=== PATIENT | male | born 1975 | race American Indian/Alaskan Native ===

== ENCOUNTER 2016-10-13 12:15 | Emergency (ER) | payer SELFPAY ==
[~2016-10-13 12:15] MED LIST: PEPCID IV ONE
[2016-10-13] MEDS ORDERED: PEPCID IV ONE (12:26)
[2016-10-13 13:12] VITALS: BP 128/87
--- NOTE | 2016-10-13 14:15 | Emergency Department Report ---
ED General Adult HPI - General Chief complaint: Allergic Reaction Stated complaint: ALLERGIC REACTION Time Seen by Provider: 10/13/16 12:39 Source: patient, EMS Mode of arrival: Stretcher Limitations: No Limitations - History of Present Illness Initial comments: Patient states he was mowing the lawn when he got stung several times in the ankle and the arm by yellow jackets. He developed itching and swelling. He denies any previous allergic reaction. States he had some difficulty in breathing initially when the paramedics arrived. He was given Benadryl and Solu -Medrol. At the time of his arrival, he stated his difficulty in breathing had resolved. He denied any swelling in his oropharynx. In addition on arrival he was given Pepcid IV. -: Sudden Severity scale (0 -10): 0 Consistency: constant Improves with: none Worsens with: none Associated Symptoms: denies other symptoms - Related Data Home Medications Medication Instructions Recorded Confirmed Last Taken Multivitamin Tab [Multiple Vitamin 1 each PO QDAY 10/13/16 10/13/16 10/13/16 TAB (Theragran)] Allergies Allergy/AdvReac Type Severity Reaction Status Date / Time wool Allergy Itching Uncoded 10/13/16 12:27 ED Review of Systems ROS: Stated complaint: ALLERGIC REACTION Other details as noted in HPI Constitutional: denies: chills, fever Eyes: denies: eye pain, eye discharge, vision change ENT: denies: ear pain, throat pain Respiratory: shortness of breath. denies: cough, wheezing Cardiovascular: denies: chest pain, palpitations Endocrine: no symptoms reported Gastrointestinal: denies: abdominal pain, nausea, diarrhea Genitourinary: denies: urgency, dysuria Musculoskeletal: denies: back pain, joint swelling, arthralgia Skin: denies: rash, lesions Neurological: denies: headache, weakness, paresthesias Psychiatric: denies: anxiety, depression Hematological/Lymphatic: denies: easy bleeding, easy bruising ED Past Medical Hx - Past Medical History Previous Medical History?: Yes Hx Hypertension: Yes (noncompliant) - Surgical History Past Surgical History?: No - Social History Smoking Status: Current Every Day Smoker Substance Use Type: Alcohol - Medications Home Medications: Home Medications Medication Instructions Recorded Confirmed Last Taken Type Multivitamin Tab [Multiple Vitamin 1 each PO QDAY 10/13/16 10/13/16 10/13/16 History TAB (Theragran)] ED Physical Exam - General Limitations: No Limitations General appearance: alert, in no apparent distress - Head Head exam: Present: atraumatic, normocephalic - Eye Eye exam: Present: normal appearance. Absent: scleral icterus - ENT ENT exam: Present: normal exam, normal orophraynx, mucous membranes moist, other (mild lip edema) - Neck Neck exam: Present: normal inspection. Absent: tenderness, meningismus - Respiratory Respiratory exam: Present: normal lung sounds bilaterally. Absent: respiratory distress - Cardiovascular Cardiovascular Exam: Present: regular rate, normal rhythm. Absent: systolic murmur, diastolic murmur, rubs, gallop - GI/Abdominal GI/Abdominal exam: Present: soft, normal bowel sounds. Absent: distended, tenderness, guarding, rebound, rigid - Rectal Rectal exam: Present: deferred - Extremities Exam Extremities exam: Present: normal inspection - Back Exam Back exam: Present: normal inspection - Neurological Exam Neurological exam: Present: alert, oriented X3, CN II-XII intact. Absent: motor sensory deficit - Psychiatric Psychiatric exam: Present: normal affect, normal mood - Skin Skin exam: Present: warm, dry, intact, normal color. Absent: rash ED Course Vital Signs 10/13/16 10/13/16 10/13/16 12:15 12:30 12:45 Temperature 98.4 F Pulse Rate 91 H Respiratory 16 Rate Blood Pressure 139/82 137/87 128/87 Blood Pressure 132/82 [Right] O2 Sat by Pulse 98 98 100 Oximetry 10/13/16 13:13 Temperature Pulse Rate Respiratory 16 Rate Blood Pressure Blood Pressure [Right] O2 Sat by Pulse 100 Oximetry - Reevaluation(s) Reevaluation #1: On reexamination the patient's symptoms had resolved. His lip swelling had improved. 10/13/16 14:17 Reevaluation #2: Note patient eloped without written discharge instructions but received verbal. 10/13/16 14:19 Critical care attestation.: If time is entered above; I have spent that time in minutes in the direct care of this critically ill patient, excluding procedure time. ED Disposition Clinical Impression: Systemic reaction to hymenoptera Qualifiers: Encounter type: initial encounter Injury intent: accidental or unintentional Qualified Code(s): T63.441A - Toxic effect of venom of bees, accidental ( unintentional), initial encounter Disposition: DC-01 TO HOME OR SELFCARE Is pt being admited?: No Does the pt Need Aspirin: No Condition: Stable Instructions: Insect Bite or Sting (ED), Urticaria (ED) Additional Instructions: Continue Benadryl and Pepcid [id number]. Return any acute change or problem. Referrals: PRIMARY CARE, [Primary Care Provider] - 2-3 Days Time of Disposition: 14:20
== END 2016-10-13 14:26 | disposition home or self-care (01) ==
LOC: ED 12:15
DX: T63.441A Toxic effect of venom of bees, accidental (unintentional), initial encounter (principal); Y92.89 Other specified places as the place of occurrence of the external cause; I10 Essential (primary) hypertension; F17.200 Nicotine dependence, unspecified, uncomplicated; Z91.048 Other nonmedicinal substance allergy status; Z91.030 Bee allergy status
CPT/HCPCS: 96374

== ENCOUNTER 2016-10-15 19:21 | Inpatient (IN) | payer OTHER ==
[2016-10-15] MEDS ORDERED: NACL 0.9% 1000 ML 1,000 ML ONE (19:25)
[2016-10-15] MEDS ORDERED: PEPCID IV ONE ×2 (19:25→20:54)
[2016-10-15] MEDS ORDERED: ADRENALIN ONE (19:25)
[2016-10-15] MEDS ORDERED: AMIDATE IV ONE ×2 (19:38→23:00)
[2016-10-15] MEDS ORDERED: QUELICIN IV ONE (19:38)
[2016-10-15] MEDS ORDERED: ATROVENT IH ONE (19:41)
[2016-10-15] MEDS ORDERED: PROVENTIL IH ONE (19:41)
[2016-10-15] MEDS ORDERED: SUBLIMAZE ONE ×3 (19:42→20:25)
[2016-10-15] MEDS: fentaNYL DRIP Premix 2,000 MCG/100 ML BAG IV SCH (19:43)
[2016-10-15] MEDS ORDERED: DIPRIVAN 10 MG/ML 1,000 MG/100 ML BOTTLE IV ONE (19:48)
[2016-10-15] MEDS ORDERED: DIPRIVAN 10 MG/ML IV ONE (19:50)
--- NOTE | 2016-10-15 19:57 | Emergency Department Report ---
ED Allergic Reaction HPI - General Stated complaint: ALLERGIC REACTION/BEE STINGS Time Seen by Provider: 10/15/16 19:34 Source: EMS Limitations: Altered Mental Status - History of Present Illness Initial Comments: Patient by EMS in a anaphylactic shock. EMS stated that patient has a had a bee sting two days ago and he got stung again today. patient is unresponsive upon arrivals and has significantly diminished air movement. Patient immediately intubated by me and received epinephrine,solumedrol,pepcid and albuterol. MD Complaint: allergic reaction, hives, facial swelling -: Sudden Exposure: insect bite Symptoms: facial swelling, lip swelling, difficulty breathing Severity: severe Treatment Prior to Arrival: benadryl, epinephrine, oxygen, steroids Previous Allergy History: anaphylaxis - Related Data Home Medications Medication Instructions Recorded Confirmed Last Taken Multivitamin Tab [Multiple Vitamin 1 each PO QDAY 10/13/16 10/13/16 10/13/16 TAB (Theragran)] Allergies Allergy/AdvReac Type Severity Reaction Status Date / Time wool Allergy Itching Uncoded 10/13/16 12:27 ED Review of Systems ROS: Stated complaint: ALLERGIC REACTION/BEE STINGS Other details as noted in HPI Comment: Unobtainable due to pts medical conditions ED Past Medical Hx - Past Medical History Hx Hypertension: Yes (noncompliant) Additional medical history: anaphylactic shock to bee sting - Social History Smoking Status: Current Every Day Smoker Substance Use Type: Alcohol - Medications Home Medications: Home Medications Medication Instructions Recorded Confirmed Last Taken Type Multivitamin Tab [Multiple Vitamin 1 each PO QDAY 10/13/16 10/13/16 10/13/16 History TAB (Theragran)] ED Physical Exam - General Limitations: Altered Mental Status General appearance: appears intoxicated, obtunded, in distress - Head Head exam: Present: atraumatic, normocephalic - Eye Eye exam: Present: periorbital swelling - Expanded ENT Exam Expanded Mouth exam: Present: other (swollen tongue) Throat exam: Positive: normal inspection - Neck Neck exam: Present: normal inspection - Respiratory Respiratory exam: Present: respiratory distress (air movement is significantly diminished on both sides), accessory muscle use. Absent: wheezes, rhonchi, stridor - Cardiovascular Cardiovascular Exam: Present: tachycardia - GI/Abdominal GI/Abdominal exam: Present: soft. Absent: distended - Expanded Neurological Exam Expanded Best Eye Response (Convoy): (2) open to pain Best Motor Response (Convoy): (4) withdraws to pain Best Verbal Response (Convoy): (2) incomprehsible sounds Convoy Total: 8 - Skin Skin exam: Present: warm ED Course Vital Signs 10/15/16 10/15/16 10/15/16 19:15 19:20 19:30 Pulse Rate 113 H 149 H 148 H Pulse Rate [ Bilateral Throughout] Respiratory 23 19 25 H Rate Respiratory Rate [Bilateral Throughout] Blood Pressure 162/118 162/118 162/118 O2 Sat by Pulse 98 99 99 Oximetry 10/15/16 10/15/16 10/15/16 19:40 19:50 20:01 Pulse Rate 123 H 137 H 97 H Pulse Rate [ Bilateral Throughout] Respiratory 14 19 21 Rate Respiratory Rate [Bilateral Throughout] Blood Pressure 130/104 133/94 97/45 O2 Sat by Pulse 97 99 98 Oximetry 10/15/16 10/15/16 10/15/16 20:06 20:11 20:21 Pulse Rate 96 H 123 H 134 H Pulse Rate [ Bilateral Throughout] Respiratory 21 24 Rate Respiratory Rate [Bilateral Throughout] Blood Pressure 97/45 97/45 149/93 O2 Sat by Pulse 98 100 100 Oximetry 10/15/16 10/15/16 10/15/16 20:31 20:41 20:51 Pulse Rate 129 H 99 H 95 H Pulse Rate [ Bilateral Throughout] Respiratory 12 18 18 Rate Respiratory Rate [Bilateral Throughout] Blood Pressure 149/93 127/74 127/74 O2 Sat by Pulse 100 97 97 Oximetry 10/15/16 10/15/16 10/15/16 20:55 21:01 21:21 Pulse Rate 91 H Pulse Rate [ 88 Bilateral Throughout] Respiratory 17 19 Rate Respiratory 20 Rate [Bilateral Throughout] Blood Pressure 127/74 O2 Sat by Pulse 98 Oximetry 10/15/16 21:30 Pulse Rate 85 Pulse Rate [ Bilateral Throughout] Respiratory Rate Respiratory Rate [Bilateral Throughout] Blood Pressure O2 Sat by Pulse Oximetry - Reevaluation(s) Reevaluation #1: 10/15/16 21:32 Patient will be admitted to the ICU discussed patient with Dr. Devi Milton - Intubation Time Out Performed: Yes Sedative: Etomidate Paralytic: Succinylcholine Mg Given: 100 Laryngoscope: Benito Size: 4 ET Tube Size: 7.5 Tube Secured Location: lips Tube Placement Confirmation: visualized tube passing t, equal breath sounds bilat, no breath sounds over epi, confirmation by capnometr Patient Tolerated Procedure: well, no complications Intubation Complications: none ED Medical Decision Making - Lab Data Result diagrams: 10/15/16 21:06 Critical Care Time: Yes (intubated in the ER) Critical care time in (mins) excluding proc time.: 60 Critical care attestation.: If time is entered above; I have spent that time in minutes in the direct care of this critically ill patient, excluding procedure time. ED Disposition Clinical Impression: Acute respiratory failure, Anaphylactic reaction Disposition: DC OP ADMIT IP TO THIS HOSP Is pt being admited?: Yes Does the pt Need Aspirin: No Condition: Critical Referrals: PRIMARY CARE, [Primary Care Provider] - 3-5 Days
[2016-10-15 20:12] LABS: Urine Drugs of Abuse Note Disclamer
[2016-10-15] MEDS ORDERED: NACL 0.9% 1000 ML 1,000 ML IV ONE (20:22)
--- NOTE | 2016-10-15 20:22 | Admit Criteria Form ---
Admission Criteria Documentation: RESPIRATORY FAILURE GRG Clinical Indications for Admission to Inpatient Care (Place 'X' for any and all applicable criteria): Hospital admission is needed for appropriate care of the patient because of acute respiratory failure or insufficiency as indicated by ANY ONE of the following(1)(2)(3)(4)(5)(6)(7)(8): [ X]I. Mechanical ventilation needed (acute invasive or noninvasive) [ ]II. Severe ventilation deficit as indicated by ANY ONE of the following (9) [ ]a) Respiratory acidosis (pH less than 7.32 and partial pressure of carbon dioxide greater than 40 mm Hg (5.3 kPa)) [ ]b) Partial pressure of carbon dioxide greater than 44 mm Hg (5.9 kPa ) (new) [ ]c) Airflow measurements less than 25% of predicted (eg, peak expiratory flow rate less than 100 L/minute) [ ]d) Forced vital capacity less than 15 mL/kg of ideal body weight, or 50% decrease in vital capacity from baseline [ ]III. Noncardiac pulmonary edema not resolving with rapid emergency treatment (8) [ ]IV. Severe respiratory distress as indicated by ANY ONE of the following: [ ]a) Severe tachypnea (respiratory rate greater than 30, greater than 45 for 6-month-old, greater than 60 for ) [ ]b) Severe hypoxemia (partial pressure of oxygen less than 50 mm Hg ( 6.7 kPa) on greater than 50% oxygen or partial pressure of oxygen to FIO2 ratio less than 200) [ ]c) Mental status deterioration from respiratory disease [ ]V. Airway obstruction or inadequate protection [A](10)(11) The original [employer] content created by [employer] has been revised. The portions of the content which have been revised are identified through the use of italic text or in bold, and [employer] has neither reviewed nor approved the modified material. All other unmodified content is copyright [employer]. Please see references footnoted in the original [employer] edition 2016 Admission Criteria Met: Yes
[2016-10-15 20:24] LABS: Bilirubin,Urine NEG (Negative); Blood,Urine SM (Negative); Ketones,Urine NEG (Negative); Leukocyte Esterase,Urine NEG (Negative); Nitrite,Urine NEG (Negative); Urobilinogen,Urine < 2.0 mg/dL (<2.0); WBC,Urine < 1.0 /HPF (0.0-6.0)
[2016-10-15] MEDS ORDERED: VERSED IV ONE (20:41)
[2016-10-15] MEDS ORDERED: SUBLIMAZE IV ONE ×3 (20:49→20:54)
[2016-10-15] MEDS ORDERED: VERSED IV NR ×2 (21:00)
[2016-10-15 21:20] LABS: Basophils % (Auto) 0.3 % (0.0-1.8); Eosinophils % (Auto) 0.4 % (0.0-4.3); Hematocrit 37.4 % (35.5-45.6); Hemoglobin 12.6 gm/dl (11.8-15.2); Mean Corpuscular HGB Conc 34 % (32-34); Mean Corpuscular Hemoglobin 32 pg (28-32); Mean Corpuscular Volume 96 fl (84-94); Platelet Count 124 K/mm3 (140-440); Red Cell Distribution Width 14.9 % (13.2-15.2); White Blood Count 5.8 K/mm3 (4.5-11.0)
[2016-10-15 21:36] LABS: INR 1.03 (0.87-1.13)
[2016-10-15 21:37] LABS: Partial Thromboplastin Time 28.1 Sec. (24.2-36.6)
[2016-10-15 21:42] LABS: Alanine Aminotransferase 39 units/L (7-56); Albumin 4.1 g/dL (3.9-5); Albumin/Globulin Ratio 1.3 %; Alkaline Phosphatase 54 units/L (35-129); Anion Gap 26 mmol/L; BUN/Creatinine Ratio 8.57; Blood Urea Nitrogen 6 mg/dL (9-20); Calcium 8.6 mg/dL (8.4-10.2); Carbon Dioxide 18 mmol/L (22-30); Creatine Kinase 311 units/L (55-170); Glucose 91 mg/dL (75-100); Potassium 3.5 mmol/L (3.6-5.0); Sodium 135 mmol/L (137-145); Total Protein 7.2 g/dL (6.3-8.2)
[2016-10-15] MEDS ORDERED: TYLENOL PO PRN (21:50)
[2016-10-15] MEDS ORDERED: ATIVAN IV PRN (21:50)
[2016-10-15] MEDS ORDERED: PROVENTIL IH PRN (21:50)
[2016-10-15] MEDS ORDERED: TYLENOL PR PRN (21:50)
[2016-10-15] MEDS ORDERED: ZOFRAN IV PRN (21:50)
[2016-10-15] MEDS ORDERED: PEPCID PO SCH (22:00)
--- NOTE | 2016-10-15 22:00 | History and Physical Report ---
<ALIVIA MILLER - Last Filed: 10/15/16 22:38> Medications and Allergies Allergies Allergy/AdvReac Type Severity Reaction Status Date / Time wool Allergy Itching Uncoded 10/13/16 12:27 Home Medications Medication Instructions Recorded Confirmed Last Taken Type Multivitamin Tab [Multiple Vitamin 1 each PO QDAY 10/13/16 10/13/16 10/13/16 History TAB (Theragran)] Active Meds: Active Medications Acetaminophen (Tylenol) 650 mg PO Q4H PRN PRN Reason: Pain MILD(1-3)/Fever >100.5/ROUSE Acetaminophen (Tylenol) 650 mg RI Q4H PRN PRN Reason: Pain MILD(1-3)/Fever >100.5/ROUSE Albuterol (Proventil) 2.5 mg IH Q3HRT PRN PRN Reason: Shortness Of Breath Diphenhydramine HCl (Benadryl) 25 mg IV Q6H KATE Famotidine (Pepcid) 10 mg PO BID KATE Fentanyl Citrate (Fentanyl Drip Premix) 2,000 mcg in 100 mls @ 4.5 mls/hr IV TITR KATE; 1 MCG/KG/HR PRN Reason: Protocol Last Admin: 10/15/16 19:43 Dose: 1 mcg/kg/hr, 4.5 mls/hr Sodium Chloride (Nacl 0.9% 1000 Ml) 1,000 mls @ 150 mls/hr IV DIRECT KATE Potassium Chloride (Kcl 10meq/100ml) 10 meq in 100 mls @ 100 mls/hr IV Q1H KATE Stop: 10/16/16 00:59 Lorazepam (Ativan) 2 mg IV Q1H PRN PRN Reason: CIWA-Ar 8-15 Lorazepam (Ativan) 4 mg IV Q1H PRN PRN Reason: CIWA-Ar 16-25 Methylprednisolone Sodium Succinate (Solu-Medrol) 125 mg IV Q6H KATE Ondansetron HCl (Zofran) 4 mg IV Q8H PRN PRN Reason: N/V unrelieved by Reglan Exam - Constitutional Vitals: Temp Pulse Resp BP Pulse Ox 85 19 127/74 98 10/15/16 21:30 10/15/16 21:21 10/15/16 21:01 10/15/16 21:01 Results - Labs CBC & Chem 7: 10/15/16 21:06 10/15/16 21:06 Labs: Abnormal lab results 10/15/16 10/15/16 10/15/16 Range/Units 21:06 21:06 21:53 MCV 96 H (84-94) fl Plt Count 124 L (140-440) K/mm3 Lymph % (Auto) 7.4 L (13.4-35.0) % Lymph # 0.4 L (1.2-5.4) K/mm3 Seg Neutrophils % 89.9 H (40.0-70.0) % POC ABG pH 7.313 L (7.35-7.45) POC ABG pO2 209 H (80-105) Sodium 135 L (137-145) mmol/L Potassium 3.5 L (3.6-5.0) mmol/L Chloride 95.0 L (98-107) mmol/L Carbon Dioxide 18 L (22-30) mmol/L BUN 6 L (9-20) mg/dL Creatinine 0.7 L (0.8-1.5) mg/dL AST 69 H (5-40) units/L Total Creatine Kinase 311 H (55-170) units/L <MARU ANDERSON - Last Filed: 10/16/16 06:22> History of Present Illness Date of examination: 10/15/16 History of present illness: History per girlfriend. 40-year-old man with no medical history was brought to the emergency room by EMS. The patient was stung by a bee, developed respiratory distress and was intubated in the emergency room. He was seen here 2 days ago, he complaining of being stung by yellow jackets and was given Solu- Medrol, Benadryl and Pepcid. The patient was instructed to continue Benadryl and Pepcid, unclear if he continued his medication upon discharge. Review of system is unobtainable Past medical history: None Past surgical history: Unknown Social history: Smokes half a pack cigarettes a day, drinks a lot, and toxicology positive for marijuana and cocaine Family history: Hypertension Medications and Allergies Active Meds: Active Medications Fentanyl Citrate (Fentanyl Drip Premix) 2,000 mcg in 100 mls @ 4.5 mls/hr IV TITR KATE; 1 MCG/KG/HR PRN Reason: Protocol Last Admin: 10/15/16 19:43 Dose: 1 mcg/kg/hr, 4.5 mls/hr Exam - Physical Exam Narrative exam: Gen. appearance: Patient lying in bed, no apparent distress, intubated HEENT: Normocephalic, atraumatic, pupils equally round and reactive to light, unable to do extraocular movement, and no sclericterus,. No JVD or thyromegaly or nodule,neck supple, no carotid bruit ,mucous membranes moist, ET tube in Place, unable to examine oral cavity Heart: S1, S2, regular rate and rhythm Lungs: Clear to auscultation bilaterally, breathing comfortable Abdomen: Positive bowel sounds, soft, nondistended, no organomegaly Extremity: No edema, cyanosis, clubbing Skin: No rash, nodules, warm, dry Neuro: Sedated - Constitutional Vitals: Temp Pulse Resp BP Pulse Ox 85 19 127/74 98 10/15/16 21:30 10/15/16 21:21 10/15/16 21:01 10/15/16 21:01 Results - Labs CBC & Chem 7: 10/16/16 04:28 10/16/16 04:28 Labs: Abnormal lab results 10/15/16 10/15/16 Range/Units 21:06 21:06 MCV 96 H (84-94) fl Plt Count 124 L (140-440) K/mm3 Lymph % (Auto) 7.4 L (13.4-35.0) % Lymph # 0.4 L (1.2-5.4) K/mm3 Seg Neutrophils % 89.9 H (40.0-70.0) % Sodium 135 L (137-145) mmol/L Potassium 3.5 L (3.6-5.0) mmol/L Chloride 95.0 L (98-107) mmol/L Carbon Dioxide 18 L (22-30) mmol/L BUN 6 L (9-20) mg/dL Creatinine 0.7 L (0.8-1.5) mg/dL AST 69 H (5-40) units/L Total Creatine Kinase 311 H (55-170) units/L - Imaging and Cardiology EKG: image reviewed Chest x-ray: image reviewed CT Scan - head: pending Assessment and Plan Assessment Acute respiratory failure Anaphylactic reaction to bee sting Thrombocytopenia Hypokalemia Substance abuse Plan Admit to medicine Continue sedation with fentanyl and propofol Start IV Solu-Medrol high-dose, Pepcid and Benadryl Start CIWA protocol with IV Ativan Replete potassium, consult critical care DVT prophylaxis with SCD
[2016-10-15 22:01] LABS: ISTAT Base Excess -5; ISTAT HCO3 21.3; ISTAT PCO2 41.9 (35-45); ISTAT PH 7.313 (7.35-7.45); ISTAT PO2 209 (80-105); ISTAT SO2 100; ISTAT TCO2 23
--- NOTE | 2016-10-15 22:52 | Cat Scan Report ---
FINAL REPORT PROCEDURE: CT HEAD/BRAIN WO CON TECHNIQUE: Computerized tomography of the head was performed without contrast material. HISTORY: AMS COMPARISON: No prior studies are available for comparison. FINDINGS: Skull and scalp: Normal. Paranasal sinuses: Mild opacification of the ethmoid sinuses. Ventricles and subarachnoid spaces: Normal. Cerebrum: No evidence of hemorrhage, acute infarction or mass . Cerebellum and brainstem: No evidence of hemorrhage, acute infarction or mass. Vasculature: Normal. Comments: None. IMPRESSION: There is no evidence of an acute intracranial process.
[2016-10-15] MEDS ORDERED: QUELICIN ONE (23:00)
[2016-10-15] MEDS ORDERED: ZEMURON IV ONE (23:00)
[2016-10-16] MEDS: BENADRYL IV SCH ×5 (00:31→22:26)
[2016-10-16] MEDS ORDERED: DIPRIVAN 10 MG/ML IV ONE (00:32)
[2016-10-16] MEDS ORDERED: DIPRIVAN 10 MG/ML 1,000 MG/100 ML BOTTLE IV ONE (00:44)
[2016-10-16] MEDS: DIPRIVAN 10 MG/ML 1,000 MG/100 ML BOTTLE IV SCH ×5 (00:57→20:22)
[2016-10-16] MEDS: KCL 10MEQ/100ML 10 MEQ/100 ML BAG IV SCH ×2 (00:59→02:53)
[2016-10-16] MEDS: NACL 0.9% 1000 ML 1,000 ML IV SCH ×4 (00:59→20:24)
[2016-10-16] MEDS: fentaNYL DRIP Premix 2,000 MCG/100 ML BAG IV SCH ×3 (01:24→22:32)
[2016-10-16] MEDS: ATIVAN IV PRN ×3 (02:54→10:46)
[2016-10-16 04:18] LABS: ISTAT Base Excess -3; ISTAT PCO2 46.6 (35-45); ISTAT PH 7.301 (7.35-7.45); ISTAT PO2 142 (80-105); ISTAT SO2 99; ISTAT TCO2 24
[2016-10-16 04:57] LABS: Hematocrit 38.6 % (35.5-45.6); Mean Corpuscular HGB Conc 34 % (32-34); Mean Corpuscular Hemoglobin 32 pg (28-32); Mean Corpuscular Volume 96 fl (84-94); Platelet Count 130 K/mm3 (140-440); Red Blood Count 4.03 M/mm3 (3.65-5.03); White Blood Count 4.1 K/mm3 (4.5-11.0)
[2016-10-16 05:28] LABS: Anion Gap 22 mmol/L; Blood Urea Nitrogen 5 mg/dL (9-20); Calcium 8.3 mg/dL (8.4-10.2); Carbon Dioxide 20 mmol/L (22-30); Chloride 99.9 mmol/L (98-107); Glucose 111 mg/dL (75-100); Potassium 4.6 mmol/L (3.6-5.0); Sodium 137 mmol/L (137-145)
[2016-10-16 05:49] LABS: Basophils % (Manual) 0 % (0.0-1.8); Blastocytes % (Manual) 0 %; Eosinophils % (Manual) 0 % (0.0-4.3); Total Cells Counted Percent 0
[2016-10-16 05:50] LABS: Diff Status Complete; Platelet Estimate Appears Decreased; Target Cells Rare
--- NOTE | 2016-10-16 08:16 | XRay Report ---
AP CHEST :10/15/16 19:21:00 CLINICAL: Fever, cough and HIV. COMPARISON:11/14/11 FINDINGS: An endotracheal tube tip is in satisfactory position. The heart is normal size. Mild vascular crowding. The lungs are slightly underexpanded. No airspace disease or pleural effusion. No pneumothorax. IMPRESSION: Satisfactory position of endotracheal tube.No pneumonia.
--- NOTE | 2016-10-16 09:34 | Consultation ---
History of Present Illness Consult date: 10/16/16 Requesting physician: MARU ANDERSON Reason for consult: other (Acute Respiratory Failure; Anaphylactic Shock) History of present illness: PULMONARY/CCM CONSULT NOTE (Full dictation # [id number]) Please see dictated notes for full details Medications and Allergies Allergies Allergy/AdvReac Type Severity Reaction Status Date / Time bee venom (honey bee) Allergy Anaphylaxis Verified 10/16/16 08:24 wool Allergy Itching Uncoded 10/13/16 12:27 Home Medications Medication Instructions Recorded Confirmed Last Taken Type Multivitamin Tab [Multiple Vitamin 1 each PO QDAY 10/13/16 10/13/16 10/13/16 History TAB (Theragran)] Active Meds: Active Medications Acetaminophen (Tylenol) 650 mg PO Q4H PRN PRN Reason: Pain MILD(1-3)/Fever >100.5/ROUSE Acetaminophen (Tylenol) 650 mg MT Q4H PRN PRN Reason: Pain MILD(1-3)/Fever >100.5/ROUSE Albuterol (Proventil) 2.5 mg IH Q3HRT PRN PRN Reason: Shortness Of Breath Diphenhydramine HCl (Benadryl) 25 mg IV Q6H KATE Last Admin: 10/16/16 03:59 Dose: 25 mg Famotidine (Pepcid) 20 mg IV BID KATE Fentanyl Citrate (Fentanyl Drip Premix) 2,000 mcg in 100 mls @ 4.5 mls/hr IV TITR KATE; 1 MCG/KG/HR PRN Reason: Protocol Last Admin: 10/16/16 01:24 Dose: 2 mcg/kg/hr, 9 mls/hr Sodium Chloride (Nacl 0.9% 1000 Ml) 1,000 mls @ 150 mls/hr IV DIRECT KATE Last Admin: 10/16/16 07:38 Dose: 150 mls/hr Propofol (Diprivan 10 Mg/Ml) 1,000 mg in 100 mls @ 2.7 mls/hr IV TITR KATE; 5 MCG/KG/MIN PRN Reason: Protocol Last Admin: 10/16/16 07:34 Dose: 40 mcg/kg/min, 21.6 mls/hr Lorazepam (Ativan) 2 mg IV Q1H PRN PRN Reason: CIWA-Ar 8-15 Last Admin: 10/16/16 07:34 Dose: 2 mg Lorazepam (Ativan) 4 mg IV Q1H PRN PRN Reason: CIWA-Ar 16-25 Methylprednisolone Sodium Succinate (Solu-Medrol) 125 mg IV Q6H KATE Last Admin: 10/16/16 08:23 Dose: 125 mg Ondansetron HCl (Zofran) 4 mg IV Q8H PRN PRN Reason: N/V unrelieved by Reglan Physical Examination Vital signs: Vital Signs Pulse Resp BP Pulse Ox 113 H 23 162/118 98 10/15/16 19:15 10/15/16 19:15 10/15/16 19:15 10/15/16 19:15 Results - Laboratory Findings CBC and BMP: 10/16/16 04:28 10/16/16 04:28 ABG POC ABG pH 7.301 (7.35-7.45) L 10/16/16 03:53 POC ABG pCO2 46.6 (35-45) H 10/16/16 03:53 POC ABG pO2 142 (80-105) H 10/16/16 03:53 POC ABG HCO3 23.0 10/16/16 03:53 POC ABG Total CO2 24 10/16/16 03:53 POC ABG O2 Sat 99 10/16/16 03:53 PT/INR, D-dimer PT 14.0 Sec. (12.2-14.9) 10/15/16 21:06 INR 1.03 (0.87-1.13) 10/15/16 21:06 Abnormal lab findings: Abnormal Labs 10/15/16 10/16/16 10/16/16 21:53 03:53 04:28 WBC 4.1 L MCV 96 H Plt Count 130 L Seg Neuts % (Manual) 93.0 H Lymphocytes % (Manual) 6.0 L Lymphocytes # (Manual) 0.2 L POC ABG pH 7.313 L 7.301 L POC ABG pCO2 46.6 H POC ABG pO2 209 H 142 H Carbon Dioxide BUN Creatinine Glucose Calcium 10/16/16 04:28 WBC MCV Plt Count Seg Neuts % (Manual) Lymphocytes % (Manual) Lymphocytes # (Manual) POC ABG pH POC ABG pCO2 POC ABG pO2 Carbon Dioxide 20 L BUN 5 L Creatinine 0.5 L Glucose 111 H Calcium 8.3 L
[2016-10-16 10:02] LABS: ISTAT Base Excess 1; ISTAT HCO3 26.2; ISTAT PCO2 43.1 (35-45); ISTAT PH 7.391 (7.35-7.45); ISTAT PO2 84 (80-105); ISTAT SO2 96; ISTAT TCO2 27
[2016-10-16] MEDS ORDERED: PANCREAZE DR 10,500 UNIT FEEDTUBE PRN (10:42)
[2016-10-16] MEDS ORDERED: SIMPLE SYRUP FEEDTUBE PRN ×2 (10:42)
[2016-10-16] MEDS ORDERED: SODIUM BICARBONATE FEEDTUBE PRN (10:42)
[2016-10-16] MEDS: PEPCID IV SCH ×2 (10:46→22:24)
[2016-10-16] MEDS: LOVENOX SUB-Q SCH (10:47)
--- NOTE | 2016-10-16 12:54 | Progress Note ---
Assessment and Plan Assessment and plan: Acute hypoxic respiratory failure. Continue sedation with fentanyl and propofol. Wean as tolerated. Pulmonary following. Anaphylactic shock. Patient with anaphylactic reaction secondary to bee sting. Continue Solu-Medrol, Pepcid and Benadryl. Substance abuse. Continue CIWA protocol. Thrombocytopenia. Continue to monitor CBC. History Interval history: Patient remains intubated and sedated. Hospitalist Physical - Constitutional Vitals: Temp Pulse Resp BP Pulse Ox 100.1 F H 80 18 132/73 95 10/16/16 08:00 10/16/16 09:49 10/16/16 09:31 10/16/16 09:49 10/16/16 09:49 General appearance: Present: no acute distress, well-nourished - EENT Eyes: Present: PERRL, EOM intact ENT: hearing intact, clear oral mucosa, dentition normal - Neck Neck: Present: supple, normal ROM - Respiratory Respiratory effort: normal Respiratory: bilateral: CTA - Cardiovascular Rhythm: regular Heart Sounds: Present: S1 & S2. Absent: gallop, rub - Extremities Extremities: no ischemia, No edema, Full ROM - Abdominal General gastrointestinal: soft, non-tender, non-distended, normal bowel sounds - Integumentary Integumentary: Present: clear, warm, dry - Neurologic Neurologic: CNII-XII intact, moves all extremities Results - Labs CBC & Chem 7: 10/16/16 04:28 10/16/16 04:28 Labs: Laboratory Last Values WBC 4.1 K/mm3 (4.5-11.0) L 10/16/16 04:28 RBC 4.03 M/mm3 (3.65-5.03) 10/16/16 04:28 Hgb 13.0 gm/dl (11.8-15.2) 10/16/16 04:28 Hct 38.6 % (35.5-45.6) 10/16/16 04:28 MCV 96 fl (84-94) H 10/16/16 04:28 MCH 32 pg (28-32) 10/16/16 04:28 MCHC 34 % (32-34) 10/16/16 04:28 RDW 15.0 % (13.2-15.2) 10/16/16 04:28 Plt Count 130 K/mm3 (140-440) L 10/16/16 04:28 Lymph % (Auto) 7.4 % (13.4-35.0) L 10/15/16 21:06 Wal[place] % (Auto) 2.0 % (0.0-7.3) 10/15/16 21:06 Eos % (Auto) 0.4 % (0.0-4.3) 10/15/16 21:06 Baso % (Auto) 0.3 % (0.0-1.8) 10/15/16 21:06 Lymph # 0.4 K/mm3 (1.2-5.4) L 10/15/16 21:06 Waldo # 0.1 K/mm3 (0.0-0.8) 10/15/16 21:06 Eos # 0.0 K/mm3 (0.0-0.4) 10/15/16 21:06 Baso # 0.0 K/mm3 (0.0-0.1) 10/15/16 21:06 Add Manual Diff Complete 10/16/16 04:28 Total Counted 100 10/16/16 04:28 Seg Neutrophils % Senior Attorney 10/16/16 04:28 Seg Neuts % (Manual) 93.0 % (40.0-70.0) H 10/16/16 04:28 Band Neutrophils % 1.0 % 10/16/16 04:28 Lymphocytes % (Manual) 6.0 % (13.4-35.0) L 10/16/16 04:28 Reactive Lymphs % (Man) 0 % 10/16/16 04:28 Monocytes % (Manual) 0 % (0.0-7.3) 10/16/16 04:28 Eosinophils % (Manual) 0 % (0.0-4.3) 10/16/16 04:28 Basophils % (Manual) 0 % (0.0-1.8) 10/16/16 04:28 Metamyelocytes % 0 % 10/16/16 04:28 Myelocytes % 0 % 10/16/16 04:28 Promyelocytes % 0 % 10/16/16 04:28 Blast Cells % 0 % 10/16/16 04:28 Nucleated RBC % Not Reportable 10/16/16 04:28 Seg Neutrophils # 5.2 K/mm3 (1.8-7.7) 10/15/16 21:06 Seg Neutrophils # Man 3.8 K/mm3 (1.8-7.7) 10/16/16 04:28 Band Neutrophils # 0.0 K/mm3 10/16/16 04:28 Lymphocytes # (Manual) 0.2 K/mm3 (1.2-5.4) L 10/16/16 04:28 Abs React Lymphs (Man) 0.0 K/mm3 10/16/16 04:28 Monocytes # (Manual) 0.0 K/mm3 (0.0-0.8) 10/16/16 04:28 Eosinophils # (Manual) 0.0 K/mm3 (0.0-0.4) 10/16/16 04:28 Basophils # (Manual) 0.0 K/mm3 (0.0-0.1) 10/16/16 04:28 Metamyelocytes # 0.0 K/mm3 10/16/16 04:28 Myelocytes # 0.0 K/mm3 10/16/16 04:28 Promyelocytes # 0.0 K/mm3 10/16/16 04:28 Blast Cells # 0.0 K/mm3 10/16/16 04:28 WBC Morphology Not Reportable 10/16/16 04:28 Hypersegmented Neuts Not Reportable 10/16/16 04:28 Hyposegmented Neuts Not Reportable 10/16/16 04:28 Hypogranular Neuts Not Reportable 10/16/16 04:28 Smudge Cells Not Reportable 10/16/16 04:28 Toxic Granulation Not Reportable 10/16/16 04:28 Toxic Vacuolation Not Reportable 10/16/16 04:28 Dohle Bodies Not Reportable 10/16/16 04:28 Pelger-Huet Anomaly Not Reportable 10/16/16 04:28 Juliano Rods Not Reportable 10/16/16 04:28 Platelet Estimate Appears decreased 10/16/16 04:28 Clumped Platelets Not Reportable 10/16/16 04:28 Plt Clumps, EDTA Not Reportable 10/16/16 04:28 Large Platelets Not Reportable 10/16/16 04:28 Giant Platelets Not Reportable 10/16/16 04:28 Platelet Satelliting Not Reportable 10/16/16 04:28 Plt Morphology Comment Not Reportable 10/16/16 04:28 RBC Morphology Not Reportable 10/16/16 04:28 Dimorphic RBCs Not Reportable 10/16/16 04:28 Polychromasia Not Reportable 10/16/16 04:28 Hypochromasia Not Reportable 10/16/16 04:28 Poikilocytosis Not Reportable 10/16/16 04:28 Anisocytosis Not Reportable 10/16/16 04:28 Microcytosis Not Reportable 10/16/16 04:28 Macrocytosis Not Reportable 10/16/16 04:28 Spherocytes Not Reportable 10/16/16 04:28 Pappenheimer Bodies Not Reportable 10/16/16 04:28 Sickle Cells Not Reportable 10/16/16 04:28 Target Cells Rare 10/16/16 04:28 Tear Drop Cells Not Reportable 10/16/16 04:28 Ovalocytes Not Reportable 10/16/16 04:28 Helmet Cells Not Reportable 10/16/16 04:28 [place] Bodies Not Reportable 10/16/16 04:28 [place] Rings Not Reportable 10/16/16 04:28 Oskar Cells Not Reportable 10/16/16 04:28 Bite Cells Not Reportable 10/16/16 04:28 Crenated Cell Not Reportable 10/16/16 04:28 Elliptocytes Not Reportable 10/16/16 04:28 Acanthocytes (Spur) Not Reportable 10/16/16 04:28 Rouleaux Not Reportable 10/16/16 04:28 Hemoglobin C Crystals Not Reportable 10/16/16 04:28 Schistocytes Not Reportable 10/16/16 04:28 Malaria parasites Not Reportable 10/16/16 04:28 Enrrique Bodies Not Reportable 10/16/16 04:28 Hem Pathologist Commnt No 10/16/16 04:28 PT 14.0 Sec. (12.2-14.9) 10/15/16 21:06 INR 1.03 (0.87-1.13) 10/15/16 21:06 APTT 28.1 Sec. (24.2-36.6) 10/15/16 21:06 POC ABG pH 7.391 (7.35-7.45) 10/16/16 09:49 POC ABG pCO2 43.1 (35-45) 10/16/16 09:49 POC ABG pO2 84 (80-105) 10/16/16 09:49 POC ABG HCO3 26.2 10/16/16 09:49 POC ABG Total CO2 27 10/16/16 09:49 POC ABG O2 Sat 96 10/16/16 09:49 POC ABG Base Excess 1 10/16/16 09:49 FiO2 30 % 10/16/16 09:49 Sodium 137 mmol/L (137-145) 10/16/16 04:28 Potassium 4.6 mmol/L (3.6-5.0) D 10/16/16 04:28 Chloride 99.9 mmol/L (98-107) 10/16/16 04:28 Carbon Dioxide 20 mmol/L (22-30) L 10/16/16 04:28 Anion Gap 22 mmol/L 10/16/16 04:28 BUN 5 mg/dL (9-20) L 10/16/16 04:28 Creatinine 0.5 mg/dL (0.8-1.5) L 10/16/16 04:28 Estimated GFR > 60 ml/min 10/16/16 04:28 BUN/Creatinine Ratio 10.00 % 10/16/16 04:28 Glucose 111 mg/dL (75-100) H 10/16/16 04:28 Calcium 8.3 mg/dL (8.4-10.2) L 10/16/16 04:28 Total Bilirubin 0.50 mg/dL (0.1-1.2) 10/15/16 21:06 AST 69 units/L (5-40) H 10/15/16 21:06 ALT 39 units/L (7-56) 10/15/16 21:06 Alkaline Phosphatase 54 units/L (35-129) 10/15/16 21:06 Total Creatine Kinase 311 units/L (55-170) H 10/15/16 21:06 Total Protein 7.2 g/dL (6.3-8.2) 10/15/16 21:06 Albumin 4.1 g/dL (3.9-5) 10/15/16 21:06 Albumin/Globulin Ratio 1.3 % 10/15/16 21:06 Urine Color Yellow (Yellow) 10/15/16 20:08 Urine Turbidity Clear (Clear) 10/15/16 20:08 Urine pH 6.0 (5.0-7.0) 10/15/16 20:08 Ur Specific [place] 1.003 (1.003-1.030) 10/15/16 20:08 Urine Protein 100 mg/dl mg/dL (Negative) 10/15/16 20:08 Urine Glucose (UA) Neg mg/dL (Negative) 10/15/16 20:08 Urine Ketones Neg mg/dL (Negative) 10/15/16 20:08 Urine Blood Sm (Negative) 10/15/16 20:08 Urine Nitrite Neg (Negative) 10/15/16 20:08 Urine Bilirubin Neg (Negative) 10/15/16 20:08 Urine Urobilinogen < 2.0 mg/dL (<2.0) 10/15/16 20:08 Ur Leukocyte Esterase Neg (Negative) 10/15/16 20:08 Urine WBC (Auto) < 1.0 /HPF (0.0-6.0) 10/15/16 20:08 Urine RBC (Auto) 1.0 /HPF (0.0-6.0) 10/15/16 20:08 U Epithel Cells (Auto) < 1.0 /HPF (0-13.0) 10/15/16 20:08 Urine Opiates Screen Presumptive negative 10/15/16 20:08 Urine Methadone Screen Presumptive negative 10/15/16 20:08 Ur Barbiturates Screen Presumptive negative 10/15/16 20:08 Ur Phencyclidine Scrn Presumptive negative 10/15/16 20:08 Ur Amphetamines Screen Presumptive negative 10/15/16 20:08 U Benzodiazepines Scrn Presumptive negative 10/15/16 20:08 Urine Cocaine Screen Presumptive positive 10/15/16 20:08 U Marijuana (THC) Screen Presumptive negative 10/15/16 20:08 Drugs of Abuse Note Disclamer 10/15/16 20:08 Plasma/Serum Alcohol 0.27 gm% (0-0.07) H 10/15/16 21:06
--- NOTE | 2016-10-16 13:40 | XRay Report ---
KUB. History: NG tube placement. Findings: The NG tube terminates in the distal stomach.
[2016-10-16] MEDS ORDERED: APRESOLINE ONE (16:20)
[2016-10-16] MEDS: APRESOLINE IV PRN (16:28)
[2016-10-17] MEDS: DIPRIVAN 10 MG/ML 1,000 MG/100 ML BOTTLE IV SCH ×2 (01:27→05:14)
[2016-10-17] MEDS: BENADRYL IV SCH ×4 (03:12→22:37)
[2016-10-17] MEDS: NACL 0.9% 1000 ML 1,000 ML IV SCH ×2 (03:13→09:08)
[2016-10-17 04:13] LABS: ISTAT Base Excess 4; ISTAT PCO2 46.2 (35-45); ISTAT PH 7.407 (7.35-7.45); ISTAT PO2 93 (80-105); ISTAT SO2 97; ISTAT TCO2 30
--- NOTE | 2016-10-17 05:28 | Consultation ---
PULMONARY CRITICAL CARE CONSULTATION CONSULTING PHYSICIAN: Katalina Milton M.D. REASON FOR CONSULTATION: Anaphylaxis with acute respiratory failure, on mechanical ventilatory support. CHIEF COMPLAINT AND HISTORY OF PRESENT ILLNESS: The patient is a 40-year-old -[place] male with past medical history significant in this context really for an initial visit to the Emergency Room about 2-3 days before this presentation. He had been stung by a bee and at that time, he was treated appropriately. He responded well. He was discharged, reportedly was told to continue taking his antihistamine therapy. According to his girlfriend in the room, yesterday he was stung by another bee and EMS had to be called because the patient essentially went into shock. He developed swelling of his face in the Emergency Room and upon arrival, he was unresponsive. He had diminished bilateral breath sounds. He was emergently intubated. He received epinephrine, Solu-Medrol, Pepcid, albuterol and ultimately was transferred to the Intensive Care Unit, where I stopped by to see him. His girlfriend and mom were in the room. They do admit to about a 10-pack year tobacco smoking history. They stated that he had been bitten by bees in the past, but never had this kind of reaction to it. They denied any nausea, vomiting, or overt aspiration. They denied any overt trauma prior to his coming into the hospital. That really is as much of the history of presentation as I have. PAST MEDICAL HISTORY: Hypertension, tobacco use disorder. PAST SURGICAL HISTORY: Unknown. MEDICATIONS: He was on at the time I stopped by to see him, according to the medication administration record included the following: Tylenol 650 mg p.o. q. 4 hours p.r.n. mild pain. All p.o. meds via the feeding tube. Albuterol 2.5 mg inhaled q. 3 hours for shortness of breath. Benadryl 25 mg IV q. 6 hours. Lovenox 40 mg subcutaneous daily had just been added today. Pepcid 20 mg IV b.i.d. He was on a fentanyl drip, I believe it was going at about 2 mcg per kilogram per hour. A CIWA protocol had been started with IV Ativan as the treatment. Solu-Medrol 125 mg IV q. 6h. was also scheduled. Zofran 4 mg IV q. 8 hours p.r.n. nausea and vomiting. Propofol drip was going at 40 mcg per kilogram per minute. ALLERGIES: BEE VENOM. DIET: Well-built gentleman. Family denies acute weight loss or gain in the preceding few weeks to months. FAMILY AND SOCIAL HISTORY: He does have about a 10-pack year tobacco smoking history. He apparently drinks alcohol every day and there is a history of positive drug screen. Family history otherwise noncontributory. REVIEW OF SYSTEMS: Unobtainable secondary to the patient's medical and mental condition. Since he has been here, no gross hematochezia or melena, no gross hematuria. No hematemesis. No bloody tracheal secretions. No witnessed seizures. PHYSICAL EXAMINATION: VITAL SIGNS: At presentation in the Emergency Room, he was afebrile, temperature 98.0 Fahrenheit with a pulse of 78, respiratory rate 23, blood pressure 162/118, oxygen sats were 98%, inspired oxygen concentration at the time was not recorded. HEAD, EYES, EARS, NOSE AND THROAT: Pupils were pinpoint by the time I saw him. Extraocular muscle movements could not be assessed. Endotracheal tube was in place, taped at the lips around 23 to 24 cm. NECK: Grossly, there were no palpable lymph nodes in the supraclavicular or submandibular lymph node chains. He still had obvious swelling periorbital to the eyes and his lips had mild swelling. LUNGS: Auscultation of both lung plunkett, scant basilar rales, no wheezing. HEART: Heart sounds 1 and 2 are heard at the time of my evaluation. They were regular in rate and rhythm. ABDOMEN: Soft. Bowel sounds were positive. Did not appear tender. EXTREMITIES: Without overt digital clubbing, cyanosis, or pedal edema. NEUROLOGIC: He was sedated, but had spontaneous movements to all extremities prior. LABORATORY DATA: From my review are as follows: Admission white cell count 5800 with a hemoglobin of 12.6, hematocrit of 37.4, platelet count of 124. INR 1.03. Admission ABG showed a pH of 7.31, pCO2 of 42, pO2 of 209 that was on 50% FiO2. It is unclear if that was on the mechanical ventilator. ABG this morning 7.39 on the pH, pCO2 of 43, pO2 of 84, that was on assist control, tidal volume 500, rate of 18, PEEP of 5. Serum sodium was 135, potassium 3.5 at presentation. It is up to 4.6 today. Chloride was 95, bicarbonate was 18, it is up to 20 today. BUN was 6, creatinine was 0.7 and glucose was 91. Liver function test: AST was 69. Otherwise, essentially within normal limits. CPK was 311 at presentation. Urinalysis was unremarkable. Urine drug screen was presumptive positive for cocaine. Plasma alcohol level was 0.27. No microbiology studies. CT scan of the head was done. I have reviewed the interpretation. It is interpreted as a normal CT scan. Chest X-ray: ET tube is just around the level. The tip is at the lower level of the clavicular heads. The film is slightly rotated to the head. ____ around the sternal notch/clavicular head region, but I doubt there is a true infiltrate. Cardiovascular silhouette is borderline enlarged, no gross pneumothorax, no gross bony fracture. ASSESSMENT AND PLAN: We have a young gentleman in with acute anaphylactic reaction after multiple re-challenges and appropriately intubated for airway protection. The swelling around the eyes and the failure of a cuff-leak test suggest that he still needs to be on the mechanical ventilator. We will try and reduce the sedation, give him a sedation on the occasion that he has been getting really agitated. For that reason, from a CONSOLIDATION ACCOUNTANT standpoint, I will go ahead and start him on Seroquel and see if we can come down on the propofol and the fentanyl and hopefully we can start weaning him from as early as tomorrow. We will continue systemic steroids, but I will reduce the dose to 60 IV q. 6. We will continue antihistamine therapy with Benadryl as well as Pepcid. Oxygen will be weaned to keep sats greater than or equal to about 90-94%. Aspiration precautions will be maintained. He is appropriately on GI prophylaxis. Enteral nutrition will be started. A feeding tube will be placed. Inputs and outputs will be monitored. Electrolytes will be corrected as necessary. He will be followed off antibiotics. I have explained the care plan to the family and the fact that he will likely benefit from an epinephrine pen post discharge. Flu and pneumonia vaccination will be per protocol. Thank you very much for the consult, Dr. Milton. We will make further recommendations as picture progresses/becomes clearer. He is critically ill on life-sustaining interventions including mechanical ventilator support at high risk for further deterioration including at this time. TIME SPENT: About 30-35 minutes of critical care time without overlap and excluding any procedural time that may be necessary. JOB# [id number] REJI/NADIA
--- NOTE | 2016-10-17 08:14 | Progress Note ---
Assessment and Plan - Patient Problems (1) Acute respiratory failure Current Visit: Yes Status: Acute Qualifiers: Respiratory failure complication: R Plan to address problem: - doing better - begin a spontaneous breathing trial - good cuff leak - extubate to prn BIPAP if passes SBT - continue aspiration precautions / VAP bundles - wean oxygen for sats >/= 94% (2) Anaphylactic reaction Current Visit: Yes Status: Acute Qualifiers: Encounter type: E Plan to address problem: - resolved mostly - begin antihistamine taper post extubation - prn BIPAP post extubation - he will benefit from an Epi-pen at discharge (3) Discharge planning issues Current Visit: Yes Status: Acute Plan to address problem: - improved - observe in ICU overnight post extubation .... he is critically ill on life sustaining interventions including MVS and at risk for further deterioration including ......30 mins CCT Subjective Date of service: 10/17/16 Principal diagnosis: Acute Respiratory Failure on MVS; Anaphylaxis Interval history: Seen and examined at bedside; 24 hour events reviewed; nursing and respiratory care staff consulted; no adverse overnight events reported to me; resting peacefully in bed; less agitated; denies acute chest pains or increased SOB; No N/V/F/C Objective Vital Signs - 12hr 10/16/16 10/16/16 10/16/16 20:16 20:21 20:30 Temperature Pulse Rate 71 77 77 Respiratory 18 18 Rate Blood Pressure 142/84 142/85 133/79 O2 Sat by Pulse 97 96 99 Oximetry 10/16/16 10/16/16 10/16/16 20:41 22:00 22:11 Temperature Pulse Rate 72 66 70 Respiratory 18 18 18 Rate Blood Pressure 142/85 145/91 141/86 O2 Sat by Pulse 98 99 99 Oximetry 10/16/16 10/16/16 10/16/16 22:21 22:30 22:41 Temperature Pulse Rate 67 71 72 Respiratory 18 18 18 Rate Blood Pressure 142/88 141/91 145/91 O2 Sat by Pulse 98 99 98 Oximetry 10/16/16 10/16/16 10/16/16 22:51 23:00 23:03 Temperature Pulse Rate 69 73 73 Respiratory 18 18 18 Rate Blood Pressure 139/87 134/85 134/85 O2 Sat by Pulse 99 98 98 Oximetry 10/16/16 10/16/16 10/17/16 23:49 23:57 00:00 Temperature 98.9 F Pulse Rate 62 75 Respiratory 16 Rate Blood Pressure 144/92 150/108 O2 Sat by Pulse 100 100 Oximetry 10/17/16 10/17/16 10/17/16 01:00 02:00 03:00 Temperature Pulse Rate 57 L 110 H 87 Respiratory 18 15 17 Rate Blood Pressure 163/104 125/79 138/88 O2 Sat by Pulse 100 93 95 Oximetry 10/17/16 10/17/16 10/17/16 03:44 03:55 04:00 Temperature 99.0 F Pulse Rate 81 Respiratory Rate Blood Pressure 147/88 O2 Sat by Pulse 97 99 Oximetry 10/17/16 10/17/16 10/17/16 04:01 05:01 06:00 Temperature Pulse Rate 69 59 L 59 L Respiratory 18 17 17 Rate Blood Pressure 147/98 159/101 166/109 O2 Sat by Pulse 97 99 Oximetry Constitutional: no acute distress, alert Eyes: non-icteric ENT: oropharynx moist Neck: supple, no lymphadenopathy Effort: normal Ascultation: Bilateral: clear Cardiovascular: regular rate and rhythm Gastrointestinal: normoactive bowel sounds, soft, non-tender, non-distended Integumentary: normal Extremities: no cyanosis, no edema, pulses normal, no ischemia or petechiae Neurologic: normal mental status, non-focal exam, pupils equal and round, motor strength normal and Psychiatric: mood appropriate, affect normal CBC and BMP: 10/17/16 08:27 10/17/16 08:27 ABG, PT/INR, D-dimer: ABG POC ABG pH 7.407 (7.35-7.45) 10/17/16 03:54 POC ABG pCO2 46.2 (35-45) H 10/17/16 03:54 POC ABG pO2 93 (80-105) 10/17/16 03:54 POC ABG HCO3 29.0 10/17/16 03:54 POC ABG Total CO2 30 10/17/16 03:54 POC ABG O2 Sat 97 10/17/16 03:54 PT/INR, D-dimer PT 14.0 Sec. (12.2-14.9) 10/15/16 21:06 INR 1.03 (0.87-1.13) 10/15/16 21:06 Abnormal lab findings: Abnormal Labs 10/15/16 10/16/16 10/16/16 21:53 03:53 04:28 WBC 4.1 L MCV 96 H Plt Count 130 L Seg Neuts % (Manual) 93.0 H Lymphocytes % (Manual) 6.0 L Lymphocytes # (Manual) 0.2 L POC ABG pH 7.313 L 7.301 L POC ABG pCO2 46.6 H POC ABG pO2 209 H 142 H Carbon Dioxide BUN Creatinine Glucose POC Glucose Calcium 10/16/16 10/16/16 10/17/16 04:28 15:31 03:54 WBC MCV Plt Count Seg Neuts % (Manual) Lymphocytes % (Manual) Lymphocytes # (Manual) POC ABG pH POC ABG pCO2 46.2 H POC ABG pO2 Carbon Dioxide 20 L BUN 5 L Creatinine 0.5 L Glucose 111 H POC Glucose 109 H Calcium 8.3 L
[2016-10-17 08:43] LABS: Hematocrit 41.9 % (35.5-45.6); Hemoglobin 13.7 gm/dl (11.8-15.2); Mean Corpuscular HGB Conc 33 % (32-34); Mean Corpuscular Hemoglobin 32 pg (28-32); Mean Corpuscular Volume 96 fl (84-94); Platelet Count 103 K/mm3 (140-440); Red Blood Count 4.36 M/mm3 (3.65-5.03); White Blood Count 11.9 K/mm3 (4.5-11.0)
[2016-10-17 09:03] LABS: Blood Urea Nitrogen 11 mg/dL (9-20); Calcium 8.9 mg/dL (8.4-10.2); Carbon Dioxide 28 mmol/L (22-30); Glucose 127 mg/dL (75-100); Potassium 4.5 mmol/L (3.6-5.0); Sodium 138 mmol/L (137-145)
[2016-10-17] MEDS: fentaNYL DRIP Premix 2,000 MCG/100 ML BAG IV SCH (09:08)
[2016-10-17] MEDS: LOVENOX SUB-Q SCH (09:09)
[2016-10-17] MEDS: PEPCID IV SCH (09:09)
[2016-10-17 09:16] LABS: Anion Gap 16 mmol/L
[2016-10-17 10:41] LABS: Basophils % (Manual) 0 % (0.0-1.8); Blastocytes % (Manual) 0 %; Eosinophils % (Manual) 0 % (0.0-4.3)
[2016-10-17 10:42] LABS: Anisocytosis 1+; Diff Status Complete; Large Platelets Rare; Platelet Estimate Cons
--- NOTE | 2016-10-17 11:00 | Progress Note ---
Assessment and Plan Assessment and plan: Acute hypoxic respiratory failure. Continue sedation with fentanyl and propofol. Wean as tolerated. Pulmonary following. Anaphylactic shock. Patient with anaphylactic reaction secondary to bee sting. Continue Solu-Medrol, Pepcid and Benadryl. Substance abuse. Continue CIWA protocol. Thrombocytopenia. Continue to monitor CBC. History Interval history: Patient remains intubated and sedated. Hospitalist Physical - Constitutional Vitals: Temp Pulse Resp BP Pulse Ox 98.4 F 86 9 L 144/95 97 10/17/16 08:00 10/17/16 10:01 10/17/16 10:01 10/17/16 10:01 10/17/16 10:01 General appearance: Present: no acute distress, well-nourished - EENT Eyes: Present: PERRL, EOM intact ENT: hearing intact, clear oral mucosa, dentition normal - Neck Neck: Present: supple, normal ROM - Respiratory Respiratory effort: normal Respiratory: bilateral: CTA - Cardiovascular Rhythm: regular Heart Sounds: Present: S1 & S2. Absent: gallop, rub - Extremities Extremities: no ischemia, No edema, Full ROM - Abdominal General gastrointestinal: soft, non-tender, non-distended, normal bowel sounds - Integumentary Integumentary: Present: clear, warm, dry - Neurologic Neurologic: CNII-XII intact, moves all extremities Results - Labs CBC & Chem 7: 10/17/16 08:27 10/17/16 08:27 Labs: Laboratory Last Values WBC 11.9 K/mm3 (4.5-11.0) H 10/17/16 08:27 RBC 4.36 M/mm3 (3.65-5.03) 10/17/16 08:27 Hgb 13.7 gm/dl (11.8-15.2) 10/17/16 08:27 Hct 41.9 % (35.5-45.6) 10/17/16 08:27 MCV 96 fl (84-94) H 10/17/16 08:27 MCH 32 pg (28-32) 10/17/16 08:27 MCHC 33 % (32-34) 10/17/16 08:27 RDW 15.0 % (13.2-15.2) 10/17/16 08:27 Plt Count 103 K/mm3 (140-440) L 10/17/16 08:27 Lymph % (Auto) 7.4 % (13.4-35.0) L 10/15/16 21:06 [place] % (Auto) 2.0 % (0.0-7.3) 10/15/16 21:06 Eos % (Auto) 0.4 % (0.0-4.3) 10/15/16 21:06 Baso % (Auto) 0.3 % (0.0-1.8) 10/15/16 21:06 Lymph # 0.4 K/mm3 (1.2-5.4) L 10/15/16 21:06 [place] # 0.1 K/mm3 (0.0-0.8) 10/15/16 21:06 Eos # 0.0 K/mm3 (0.0-0.4) 10/15/16 21:06 Baso # 0.0 K/mm3 (0.0-0.1) 10/15/16 21:06 Add Manual Diff Complete 10/17/16 08:27 Total Counted 100 10/17/16 08:27 Seg Neutrophils % [employer] Straightener 10/16/16 04:28 Seg Neuts % (Manual) 90.0 % (40.0-70.0) H 10/17/16 08:27 Band Neutrophils % 0 % 10/17/16 08:27 Lymphocytes % (Manual) 4.0 % (13.4-35.0) L 10/17/16 08:27 Reactive Lymphs % (Man) 0 % 10/17/16 08:27 Monocytes % (Manual) 6.0 % (0.0-7.3) 10/17/16 08:27 Eosinophils % (Manual) 0 % (0.0-4.3) 10/17/16 08:27 Basophils % (Manual) 0 % (0.0-1.8) 10/17/16 08:27 Metamyelocytes % 0 % 10/17/16 08:27 Myelocytes % 0 % 10/17/16 08:27 Promyelocytes % 0 % 10/17/16 08:27 Blast Cells % 0 % 10/17/16 08:27 Nucleated RBC % Not Reportable 10/17/16 08:27 Seg Neutrophils # 5.2 K/mm3 (1.8-7.7) 10/15/16 21:06 Seg Neutrophils # Man 10.7 K/mm3 (1.8-7.7) H 10/17/16 08:27 Band Neutrophils # 0.0 K/mm3 10/17/16 08:27 Lymphocytes # (Manual) 0.5 K/mm3 (1.2-5.4) L 10/17/16 08:27 Abs React Lymphs (Man) 0.0 K/mm3 10/17/16 08:27 Monocytes # (Manual) 0.7 K/mm3 (0.0-0.8) 10/17/16 08:27 Eosinophils # (Manual) 0.0 K/mm3 (0.0-0.4) 10/17/16 08:27 Basophils # (Manual) 0.0 K/mm3 (0.0-0.1) 10/17/16 08:27 Metamyelocytes # 0.0 K/mm3 10/17/16 08:27 Myelocytes # 0.0 K/mm3 10/17/16 08:27 Promyelocytes # 0.0 K/mm3 10/17/16 08:27 Blast Cells # 0.0 K/mm3 10/17/16 08:27 WBC Morphology Not Reportable 10/17/16 08:27 Hypersegmented Neuts Not Reportable 10/17/16 08:27 Hyposegmented Neuts Not Reportable 10/17/16 08:27 Hypogranular Neuts Not Reportable 10/17/16 08:27 Smudge Cells Not Reportable 10/17/16 08:27 Toxic Granulation Not Reportable 10/17/16 08:27 Toxic Vacuolation Not Reportable 10/17/16 08:27 Dohle Bodies Not Reportable 10/17/16 08:27 Pelger-Huet Anomaly Not Reportable 10/17/16 08:27 Juliano Rods Not Reportable 10/17/16 08:27 Platelet Estimate Cons 10/17/16 08:27 Clumped Platelets Not Reportable 10/17/16 08:27 Plt Clumps, EDTA Not Reportable 10/17/16 08:27 Large Platelets Rare 10/17/16 08:27 Giant Platelets Not Reportable 10/17/16 08:27 Platelet Satelliting Not Reportable 10/17/16 08:27 Plt Morphology Comment Not Reportable 10/17/16 08:27 RBC Morphology Not Reportable 10/17/16 08:27 Dimorphic RBCs Not Reportable 10/17/16 08:27 Polychromasia Not Reportable 10/17/16 08:27 Hypochromasia Not Reportable 10/17/16 08:27 Poikilocytosis Not Reportable 10/17/16 08:27 Anisocytosis 1+ 10/17/16 08:27 Microcytosis Not Reportable 10/17/16 08:27 Macrocytosis Not Reportable 10/17/16 08:27 Spherocytes Not Reportable 10/17/16 08:27 Pappenheimer Bodies Not Reportable 10/17/16 08:27 Sickle Cells Not Reportable 10/17/16 08:27 Target Cells Not Reportable 10/17/16 08:27 Tear Drop Cells Not Reportable 10/17/16 08:27 Ovalocytes Not Reportable 10/17/16 08:27 Helmet Cells Not Reportable 10/17/16 08:27 Rodriguez-[place] Bodies Not Reportable 10/17/16 08:27 [place] Rings Not Reportable 10/17/16 08:27 [place] Cells Not Reportable 10/17/16 08:27 Bite Cells Not Reportable 10/17/16 08:27 Crenated Cell Not Reportable 10/17/16 08:27 Elliptocytes Not Reportable 10/17/16 08:27 Acanthocytes (Spur) Not Reportable 10/17/16 08:27 Rouleaux Not Reportable 10/17/16 08:27 Hemoglobin C Crystals Not Reportable 10/17/16 08:27 Schistocytes Not Reportable 10/17/16 08:27 Malaria parasites Not Reportable 10/17/16 08:27 Enrrique Bodies Not Reportable 10/17/16 08:27 Hem Pathologist Commnt No 10/17/16 08:27 PT 14.0 Sec. (12.2-14.9) 10/15/16 21:06 INR 1.03 (0.87-1.13) 10/15/16 21:06 APTT 28.1 Sec. (24.2-36.6) 10/15/16 21:06 POC ABG pH 7.407 (7.35-7.45) 10/17/16 03:54 POC ABG pCO2 46.2 (35-45) H 10/17/16 03:54 POC ABG pO2 93 (80-105) 10/17/16 03:54 POC ABG HCO3 29.0 10/17/16 03:54 POC ABG Total CO2 30 10/17/16 03:54 POC ABG O2 Sat 97 10/17/16 03:54 POC ABG Base Excess 4 10/17/16 03:54 FiO2 30 % 10/17/16 03:54 Sodium 138 mmol/L (137-145) 10/17/16 08:27 Potassium 4.5 mmol/L (3.6-5.0) 10/17/16 08:27 Chloride 99.0 mmol/L (98-107) 10/17/16 08:27 Carbon Dioxide 28 mmol/L (22-30) D 10/17/16 08:27 Anion Gap 16 mmol/L 10/17/16 08:27 BUN 11 mg/dL (9-20) 10/17/16 08:27 Creatinine 0.5 mg/dL (0.8-1.5) L 10/17/16 08:27 Estimated GFR > 60 ml/min 10/17/16 08:27 BUN/Creatinine Ratio 22.00 % 10/17/16 08:27 Glucose 127 mg/dL (75-100) H 10/17/16 08:27 POC Glucose 109 (70-105) H 10/16/16 15:31 Calcium 8.9 mg/dL (8.4-10.2) 10/17/16 08:27 Total Bilirubin 0.50 mg/dL (0.1-1.2) 10/15/16 21:06 AST 69 units/L (5-40) H 10/15/16 21:06 ALT 39 units/L (7-56) 10/15/16 21:06 Alkaline Phosphatase 54 units/L (35-129) 10/15/16 21:06 Total Creatine Kinase 311 units/L (55-170) H 10/15/16 21:06 Total Protein 7.2 g/dL (6.3-8.2) 10/15/16 21:06 Albumin 4.1 g/dL (3.9-5) 10/15/16 21:06 Albumin/Globulin Ratio 1.3 % 10/15/16 21:06 Urine Color Yellow (Yellow) 10/15/16 20:08 Urine Turbidity Clear (Clear) 10/15/16 20:08 Urine pH 6.0 (5.0-7.0) 10/15/16 20:08 Ur Specific [place] 1.003 (1.003-1.030) 10/15/16 20:08 Urine Protein 100 mg/dl mg/dL (Negative) 10/15/16 20:08 Urine Glucose (UA) Neg mg/dL (Negative) 10/15/16 20:08 Urine Ketones Neg mg/dL (Negative) 10/15/16 20:08 Urine Blood Sm (Negative) 10/15/16 20:08 Urine Nitrite Neg (Negative) 10/15/16 20:08 Urine Bilirubin Neg (Negative) 10/15/16 20:08 Urine Urobilinogen < 2.0 mg/dL (<2.0) 10/15/16 20:08 Ur Leukocyte Esterase Neg (Negative) 10/15/16 20:08 Urine WBC (Auto) < 1.0 /HPF (0.0-6.0) 10/15/16 20:08 Urine RBC (Auto) 1.0 /HPF (0.0-6.0) 10/15/16 20:08 U Epithel Cells (Auto) < 1.0 /HPF (0-13.0) 10/15/16 20:08 Urine Opiates Screen Presumptive negative 10/15/16 20:08 Urine Methadone Screen Presumptive negative 10/15/16 20:08 Ur Barbiturates Screen Presumptive negative 10/15/16 20:08 Ur Phencyclidine Scrn Presumptive negative 10/15/16 20:08 Ur Amphetamines Screen Presumptive negative 10/15/16 20:08 U Benzodiazepines Scrn Presumptive negative 10/15/16 20:08 Urine Cocaine Screen Presumptive positive 10/15/16 20:08 U Marijuana (THC) Screen Presumptive negative 10/15/16 20:08 Drugs of Abuse Note Disclamer 10/15/16 20:08 Plasma/Serum Alcohol 0.27 gm% (0-0.07) H 10/15/16 21:06
[2016-10-17 12:18] LABS: ISTAT Base Excess 7; ISTAT HCO3 31.4; ISTAT PCO2 48.9 (35-45); ISTAT PH 7.415 (7.35-7.45); ISTAT PO2 103 (80-105); ISTAT SO2 98; ISTAT TCO2 33
[2016-10-17] MEDS: APRESOLINE IV PRN (16:09)
[2016-10-17] MEDS: PEPCID PO SCH (22:37)
[2016-10-18 04:45] LABS: Hematocrit 40.8 % (35.5-45.6); Hemoglobin 13.9 gm/dl (11.8-15.2); Mean Corpuscular HGB Conc 34 % (32-34); Mean Corpuscular Hemoglobin 32 pg (28-32); Mean Corpuscular Volume 95 fl (84-94); Red Blood Count 4.32 M/mm3 (3.65-5.03); Red Cell Distribution Width 14.6 % (13.2-15.2); White Blood Count 8.2 K/mm3 (4.5-11.0)
[2016-10-18 05:03] LABS: Anion Gap 15 mmol/L; Blood Urea Nitrogen 9 mg/dL (9-20); Calcium 9.2 mg/dL (8.4-10.2); Carbon Dioxide 29 mmol/L (22-30); Chloride 95.3 mmol/L (98-107); Glucose 106 mg/dL (75-100); Potassium 3.8 mmol/L (3.6-5.0); Sodium 135 mmol/L (137-145)
[2016-10-18 05:05] LABS: Platelet Count 86 K/mm3 (140-440)
[2016-10-18 06:58] LABS: Blastocytes % (Manual) 0 %; Eosinophils % (Manual) 0 % (0.0-4.3)
[2016-10-18 06:59] LABS: Anisocytosis 1+; Diff Status Complete; Giant Platelets Rare; Hypochromasia 1+; Platelet Estimate Consistent w Auto
[2016-10-18] MEDS: BENADRYL IV SCH ×3 (09:40→20:33)
[2016-10-18] MEDS: LOVENOX SUB-Q SCH (09:41)
[2016-10-18] MEDS: PEPCID PO SCH ×2 (09:41→21:36)
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
[2016-10-18] MEDS ORDERED: BENADRYL PO PRN (11:28)
--- NOTE | 2016-10-18 12:12 | Progress Note ---
Assessment and Plan Assessment and plan: Acute hypoxic respiratory failure. Continue sedation with fentanyl and propofol. Wean as tolerated. Pulmonary following. Anaphylactic shock. Patient with anaphylactic reaction secondary to bee sting. Continue Solu-Medrol, Pepcid and Benadryl. Substance abuse. Continue CIWA protocol. Thrombocytopenia. Recheck CBC in a.m. Check HIT panel. Etiology may be secondary to history of EtOH abuse. History Interval history: Patient extubated and doing well Hospitalist Physical - Constitutional Vitals: Temp Pulse Resp BP Pulse Ox 98.2 F 101 H 18 167/123 97 10/18/16 08:00 10/18/16 09:00 10/18/16 09:00 10/18/16 09:00 10/18/16 09:00 General appearance: Present: no acute distress, well-nourished - EENT Eyes: Present: PERRL, EOM intact ENT: hearing intact, clear oral mucosa, dentition normal - Neck Neck: Present: supple, normal ROM - Respiratory Respiratory effort: normal Respiratory: bilateral: CTA - Cardiovascular Rhythm: regular Heart Sounds: Present: S1 & S2. Absent: gallop, rub - Extremities Extremities: no ischemia, No edema, Full ROM - Abdominal General gastrointestinal: soft, non-tender, non-distended, normal bowel sounds - Integumentary Integumentary: Present: clear, warm, dry - Neurologic Neurologic: CNII-XII intact, moves all extremities Results - Labs CBC & Chem 7: 10/18/16 04:08 10/18/16 04:08 Labs: Laboratory Last Values WBC 8.2 K/mm3 (4.5-11.0) 10/18/16 04:08 RBC 4.32 M/mm3 (3.65-5.03) 10/18/16 04:08 Hgb 13.9 gm/dl (11.8-15.2) 10/18/16 04:08 Hct 40.8 % (35.5-45.6) 10/18/16 04:08 MCV 95 fl (84-94) H 10/18/16 04:08 MCH 32 pg (28-32) 10/18/16 04:08 MCHC 34 % (32-34) 10/18/16 04:08 RDW 14.6 % (13.2-15.2) 10/18/16 04:08 Plt Count 86 K/mm3 (140-440) L 10/18/16 04:08 Lymph % (Auto) 7.4 % (13.4-35.0) L 10/15/16 21:06 [place] % (Auto) 2.0 % (0.0-7.3) 10/15/16 21:06 Eos % (Auto) 0.4 % (0.0-4.3) 10/15/16 21:06 Baso % (Auto) 0.3 % (0.0-1.8) 10/15/16 21:06 Lymph # 0.4 K/mm3 (1.2-5.4) L 10/15/16 21:06 [place] # 0.1 K/mm3 (0.0-0.8) 10/15/16 21:06 Eos # 0.0 K/mm3 (0.0-0.4) 10/15/16 21:06 Baso # 0.0 K/mm3 (0.0-0.1) 10/15/16 21:06 Add Manual Diff Complete 10/18/16 04:08 Total Counted 100 10/18/16 04:08 Seg Neutrophils % [place] 10/18/16 04:08 Seg Neuts % (Manual) 84.0 % (40.0-70.0) H 10/18/16 04:08 Band Neutrophils % 10.0 % 10/18/16 04:08 Lymphocytes % (Manual) 3.0 % (13.4-35.0) L 10/18/16 04:08 Reactive Lymphs % (Man) 0 % 10/18/16 04:08 Monocytes % (Manual) 3.0 % (0.0-7.3) 10/18/16 04:08 Eosinophils % (Manual) 0 % (0.0-4.3) 10/18/16 04:08 Basophils % (Manual) 0 % (0.0-1.8) 10/17/16 08:27 Metamyelocytes % 0 % 10/18/16 04:08 Myelocytes % 0 % 10/18/16 04:08 Promyelocytes % 0 % 10/18/16 04:08 Blast Cells % 0 % 10/18/16 04:08 Nucleated RBC % Not Reportable 10/18/16 04:08 Seg Neutrophils # 5.2 K/mm3 (1.8-7.7) 10/15/16 21:06 Seg Neutrophils # Man 6.9 K/mm3 (1.8-7.7) 10/18/16 04:08 Band Neutrophils # 0.8 K/mm3 10/18/16 04:08 Lymphocytes # (Manual) 0.2 K/mm3 (1.2-5.4) L 10/18/16 04:08 Abs React Lymphs (Man) 0.0 K/mm3 10/18/16 04:08 Monocytes # (Manual) 0.2 K/mm3 (0.0-0.8) 10/18/16 04:08 Eosinophils # (Manual) 0.0 K/mm3 (0.0-0.4) 10/18/16 04:08 Basophils # (Manual) 0.0 K/mm3 (0.0-0.1) 10/18/16 04:08 Metamyelocytes # 0.0 K/mm3 10/18/16 04:08 Myelocytes # 0.0 K/mm3 10/18/16 04:08 Promyelocytes # 0.0 K/mm3 10/18/16 04:08 Blast Cells # 0.0 K/mm3 10/18/16 04:08 WBC Morphology Not Reportable 10/18/16 04:08 Hypersegmented Neuts Not Reportable 10/18/16 04:08 Hyposegmented Neuts Not Reportable 10/18/16 04:08 Hypogranular Neuts Not Reportable 10/18/16 04:08 Smudge Cells Not Reportable 10/18/16 04:08 Toxic Granulation Not Reportable 10/18/16 04:08 Toxic Vacuolation Not Reportable 10/18/16 04:08 Dohle Bodies Not Reportable 10/18/16 04:08 Pelger-Huet Anomaly Not Reportable 10/18/16 04:08 Juliano Rods Not Reportable 10/18/16 04:08 Platelet Estimate Consistent w auto 10/18/16 04:08 Clumped Platelets Not Reportable 10/18/16 04:08 Plt Clumps, EDTA Not Reportable 10/18/16 04:08 Large Platelets Not Reportable 10/18/16 04:08 Giant Platelets Rare 10/18/16 04:08 Platelet Satelliting Not Reportable 10/18/16 04:08 Plt Morphology Comment Not Reportable 10/18/16 04:08 RBC Morphology Not Reportable 10/18/16 04:08 Dimorphic RBCs Not Reportable 10/18/16 04:08 Polychromasia Not Reportable 10/18/16 04:08 Hypochromasia 1+ 10/18/16 04:08 Poikilocytosis Not Reportable 10/18/16 04:08 Anisocytosis 1+ 10/18/16 04:08 Microcytosis Not Reportable 10/18/16 04:08 Macrocytosis Not Reportable 10/18/16 04:08 Spherocytes Not Reportable 10/18/16 04:08 Pappenheimer Bodies Not Reportable 10/18/16 04:08 Sickle Cells Not Reportable 10/18/16 04:08 Target Cells Not Reportable 10/18/16 04:08 Tear Drop Cells Not Reportable 10/18/16 04:08 Ovalocytes Not Reportable 10/18/16 04:08 Helmet Cells Not Reportable 10/18/16 04:08 [place] Bodies Not Reportable 10/18/16 04:08 [place] Rings Not Reportable 10/18/16 04:08 [place] Cells Not Reportable 10/18/16 04:08 Bite Cells Not Reportable 10/18/16 04:08 Crenated Cell Not Reportable 10/18/16 04:08 Elliptocytes Not Reportable 10/18/16 04:08 Acanthocytes (Spur) Not Reportable 10/18/16 04:08 Rouleaux Not Reportable 10/18/16 04:08 Hemoglobin C Crystals Not Reportable 10/18/16 04:08 Schistocytes Not Reportable 10/18/16 04:08 Malaria parasites Not Reportable 10/18/16 04:08 Enrrique Bodies Not Reportable 10/18/16 04:08 Hem Pathologist Commnt No 10/18/16 04:08 PT 14.0 Sec. (12.2-14.9) 10/15/16 21:06 INR 1.03 (0.87-1.13) 10/15/16 21:06 APTT 28.1 Sec. (24.2-36.6) 10/15/16 21:06 POC ABG pH 7.415 (7.35-7.45) 10/17/16 12:09 POC ABG pCO2 48.9 (35-45) H 10/17/16 12:09 POC ABG pO2 103 (80-105) 10/17/16 12:09 POC ABG HCO3 31.4 10/17/16 12:09 POC ABG Total CO2 33 10/17/16 12:09 POC ABG O2 Sat 98 10/17/16 12:09 POC ABG Base Excess 7 10/17/16 12:09 FiO2 30 % 10/17/16 12:09 Sodium 135 mmol/L (137-145) L 10/18/16 04:08 Potassium 3.8 mmol/L (3.6-5.0) 10/18/16 04:08 Chloride 95.3 mmol/L (98-107) L 10/18/16 04:08 Carbon Dioxide 29 mmol/L (22-30) 10/18/16 04:08 Anion Gap 15 mmol/L 10/18/16 04:08 BUN 9 mg/dL (9-20) 10/18/16 04:08 Creatinine 0.4 mg/dL (0.8-1.5) L 10/18/16 04:08 Estimated GFR > 60 ml/min 10/18/16 04:08 BUN/Creatinine Ratio 22.50 % 10/18/16 04:08 Glucose 106 mg/dL (75-100) H 10/18/16 04:08 POC Glucose 109 (70-105) H 10/16/16 15:31 Calcium 9.2 mg/dL (8.4-10.2) 10/18/16 04:08 Total Bilirubin 0.50 mg/dL (0.1-1.2) 10/15/16 21:06 AST 69 units/L (5-40) H 10/15/16 21:06 ALT 39 units/L (7-56) 10/15/16 21:06 Alkaline Phosphatase 54 units/L (35-129) 10/15/16 21:06 Total Creatine Kinase 311 units/L (55-170) H 10/15/16 21:06 Total Protein 7.2 g/dL (6.3-8.2) 10/15/16 21:06 Albumin 4.1 g/dL (3.9-5) 10/15/16 21:06 Albumin/Globulin Ratio 1.3 % 10/15/16 21:06 Urine Color Yellow (Yellow) 10/15/16 20:08 Urine Turbidity Clear (Clear) 10/15/16 20:08 Urine pH 6.0 (5.0-7.0) 10/15/16 20:08 Ur Specific [place] 1.003 (1.003-1.030) 10/15/16 20:08 Urine Protein 100 mg/dl mg/dL (Negative) 10/15/16 20:08 Urine Glucose (UA) Neg mg/dL (Negative) 10/15/16 20:08 Urine Ketones Neg mg/dL (Negative) 10/15/16 20:08 Urine Blood Sm (Negative) 10/15/16 20:08 Urine Nitrite Neg (Negative) 10/15/16 20:08 Urine Bilirubin Neg (Negative) 10/15/16 20:08 Urine Urobilinogen < 2.0 mg/dL (<2.0) 10/15/16 20:08 Ur Leukocyte Esterase Neg (Negative) 10/15/16 20:08 Urine WBC (Auto) < 1.0 /HPF (0.0-6.0) 10/15/16 20:08 Urine RBC (Auto) 1.0 /HPF (0.0-6.0) 10/15/16 20:08 U Epithel Cells (Auto) < 1.0 /HPF (0-13.0) 10/15/16 20:08 Urine Opiates Screen Presumptive negative 10/15/16 20:08 Urine Methadone Screen Presumptive negative 10/15/16 20:08 Ur Barbiturates Screen Presumptive negative 10/15/16 20:08 Ur Phencyclidine Scrn Presumptive negative 10/15/16 20:08 Ur Amphetamines Screen Presumptive negative 10/15/16 20:08 U Benzodiazepines Scrn Presumptive negative 10/15/16 20:08 Urine Cocaine Screen Presumptive positive 10/15/16 20:08 U Marijuana (THC) Screen Presumptive negative 10/15/16 20:08 Drugs of Abuse Note Disclamer 10/15/16 20:08 Plasma/Serum Alcohol 0.27 gm% (0-0.07) H 10/15/16 21:06
[2016-10-19 07:00] LABS: Basophils % (Auto) 0.1 % (0.0-1.8); Hematocrit 41.9 % (35.5-45.6); Mean Corpuscular HGB Conc 33 % (32-34); Mean Corpuscular Hemoglobin 32 pg (28-32); Mean Corpuscular Volume 96 fl (84-94); Red Blood Count 4.37 M/mm3 (3.65-5.03); Red Cell Distribution Width 14.8 % (13.2-15.2); White Blood Count 6.2 K/mm3 (4.5-11.0)
[2016-10-19 07:04] LABS: Platelet Count 97 K/mm3 (140-440)
[2016-10-19 07:23] LABS: Anion Gap 16 mmol/L; Blood Urea Nitrogen 11 mg/dL (9-20); Calcium 8.5 mg/dL (8.4-10.2); Carbon Dioxide 26 mmol/L (22-30); Chloride 97.6 mmol/L (98-107); Glucose 118 mg/dL (75-100); Potassium 3.9 mmol/L (3.6-5.0); Sodium 136 mmol/L (137-145)
[2016-10-19] MEDS: APRESOLINE IV PRN (08:36)
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
[2016-10-19] MEDS: PEPCID PO SCH (09:42)
--- NOTE | 2016-10-19 11:13 | Discharge Summary ---
Providers - Providers Date of Admission: 10/15/16 21:51 Date of discharge: 10/19/16 Attending physician: ARCHIE SÁNCHEZ Primary care physician: [employer] Hospitalization Reason for admission: anaphylaxis Condition: Good Hospital course: This is a 40-year-old male presented through the emergency department with anaphylactic reaction/sock. EMS stated that patient has a had a bee sting two days prior to admission and a single bee sting on the day of admission. Upon arrival to the emergency room, patient was unresponsive and had significantly diminished air movement. Patient was immediately intubated and received epinephrine, Pepcid and Solu-Medrol. Patient was admitted to the ICU and remained on mechanical ventilation. Pulmonary slowly wean the patient off the ventilator. Initially, patient had a no cuff leak which later resolved after the anaphylactic/allergic reaction subsided. Patient was then extubated and transferred to the floor. Also, conditions on hospital stay was accelerated hypertension which was treated with IV hydralazine. Patient will be discharged home with antihypertensive medications. Dedicated discharge time 31 minutes. Disposition: DC-01 TO HOME OR SELFCARE Time spent for discharge: 31 - Discharge Diagnoses (1) Acute respiratory failure Status: Acute Qualifiers: Respiratory failure complication: R (2) Anaphylactic reaction Status: Acute Qualifiers: Encounter type: E Core Measure Documentation - Palliative Care Palliative Care/ Comfort Measures: Not Applicable - Core Measures Any of the following diagnoses?: none Exam - Constitutional Vitals: Temp Pulse Resp BP Pulse Ox 98.0 F 72 20 161/103 99 10/19/16 08:00 10/19/16 08:00 10/19/16 08:00 10/19/16 08:00 10/19/16 08:00 General appearance: Present: no acute distress, well-nourished - EENT Eyes: Present: PERRL ENT: hearing intact, clear oral mucosa - Neck Neck: Present: supple, normal ROM - Respiratory Respiratory effort: normal Respiratory: bilateral: CTA - Cardiovascular Heart Sounds: Present: S1 & S2. Absent: rub, click - Extremities Extremities: pulses symmetrical, No edema Peripheral Pulses: within normal limits - Abdominal General gastrointestinal: Present: soft, non-tender, non-distended, normal bowel sounds Male genitourinary: Present: normal - Integumentary Integumentary: Present: clear, warm, dry - Musculoskeletal Musculoskeletal: gait normal, strength equal bilaterally - Psychiatric Psychiatric: appropriate mood/affect, intact judgment & insight - Neurologic Neurologic: CNII-XII intact, moves all extremities Plan Activity: no restrictions Weight Bearing Status: Full Weight Bearing Special Instructions: other (avoid bee stings) Follow up with: PRIMARY CARE,MD [Primary Care Provider] - 3-5 Days Prescriptions: diphenhydrAMINE [Benadryl CAP] 25 mg PO Q6H PRN #10 capsule PRN Reason: Anaphylaxis EPINEPHrine [Epipen 2-Moshe] 0.3 mg IM DAILY PRN #1 ml PRN Reason: Anaphylaxis Famotidine [Pepcid] 20 mg PO BID #30 tablet Labetalol [Normodyne TAB] 200 mg PO BID #60 tablet Prednisone [predniSONE 10 mg (6-Day Pack, 21 Tabs)] 10 mg PO .TAPER #1 tab.ds.pk
[2016-10-19 13:49] VITALS: BP 160/92
[2016-10-22 07:53] LABS: Heparin-Induced Platelet Antib Negative (Negative); Unfractionated Heparin Negative (Negative)
== END 2016-10-19 13:00 | disposition home or self-care (01) | DRG 208 ==
LOC: ED 19:21 → CC1 21:51 → 3A 10-18 17:13
PROVIDERS: ADMIT Internal Medicine; ATTEND Hospitalist
PROC: 4A033R1 Measurement of Arterial Saturation, Peripheral, Percutaneous Approach (ICD-10-PCS; 2016-10-16)
PROC: 5A1945Z Respiratory Ventilation, 24-96 Consecutive Hours (ICD-10-PCS; principal; 2016-10-17)
PROC: 0BH17EZ Insertion of Endotracheal Airway into Trachea, Via Natural or Artificial Opening (ICD-10-PCS; 2016-10-17)
DX: J96.01 Acute respiratory failure with hypoxia (principal); T78.2XXA Anaphylactic shock, unspecified, initial encounter; T63.441A Toxic effect of venom of bees, accidental (unintentional), initial encounter; F12.929 Cannabis use, unspecified with intoxication, unspecified; D69.6 Thrombocytopenia, unspecified; F17.210 Nicotine dependence, cigarettes, uncomplicated; E87.6 Hypokalemia; F19.10 Other psychoactive substance abuse, uncomplicated; I10 Essential (primary) hypertension; F10.20 Alcohol dependence, uncomplicated; Z91.030 Bee allergy status; Y92.89 Other specified places as the place of occurrence of the external cause; Z91.048 Other nonmedicinal substance allergy status; Z82.49 Family history of ischemic heart disease and other diseases of the circulatory system
CPT/HCPCS: 36415; 36600; 70450; 71010; 74000; 80048; 80053; 80307; 80320; 81001; 82550; 82803; 82962; 85007; 85025; 85610; 85730; 86022; 93005; 93010; 94002; 94003; 94640; 94760; 96361; 96374; 96375; G0480; J0171; J0330; J0360; J1200; J1650; J2060; J2250; J2704; J2930; J3010; J3480; J7030